=== PATIENT | male | born 2000 | race Caucasian/White ===

== ENCOUNTER 2022-10-13 17:33 | Emergency (ER) | payer OTHER ==
[2022-10-13] MEDS ORDERED: IBUPROFEN 800 MG TABLET PO STA (18:05)
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
[2022-10-13 18:11] VITALS: BP 121/66
== END 2022-10-13 18:24 | disposition home or self-care (01) ==
LOC: ED 17:33
DX: S80.12XA Contusion of left lower leg, initial encounter (principal); S50.12XA Contusion of left forearm, initial encounter; V49.9XXA Car occupant (driver) (passenger) injured in unspecified traffic accident, initial encounter
CPT/HCPCS: 99282; 99283; A9270